=== PATIENT | female | born 1995 | race Caucasian/White ===

== ENCOUNTER 2021-12-31 08:51 | Emergency (ER) | payer MEDICAID, SELFPAY ==
--- NOTE | ~2021-12-31 | CT_ITS ---
EXAMINATION: CT abdomen pelvis w con DATE: 12/31/2021 12:18 INDICATION: Epigastric pain and vomiting TECHNIQUE: Computed tomography (CT) of the abdomen and pelvis was performed with 100 mL Omnipaque-350 intravenous contrast. Automated exposure control and iterative reconstruction technique were employe d. The dose-length product was 614.78 mGy-cm. COMPARISON: 05/31/2012 FINDINGS: Lung bases are clear. Heart size is normal. No pericardial or pleural effusion. Focal hepatic steatos is at the ligamentum teres. Gallbladder, pancreas, spleen and bilateral adrenal glands are normal. No nobstructing 1 mm stone in upper pole calyx of the right kidney and 2 mm stone in a lower pole calyx of the left kidney. No ureteral stones or hydronephrosis. Bladder is normal. Bilateral likely tubal l igation rings. Uterus and adnexa are otherwise unremarkable. Diffuse mild fatty infiltration of the w all of the colon likely related to body habitus. Small bowel and appendix are normal. No free intrape ritoneal gas . Negligible likely physiologic free fluid in the deep pelvis.. No pathologically enlarg ed abdominal or pelvic lymphadenopathy. Mild to moderate lower lumbar spondylosis. IMPRESSION: 1. Bilateral nonobstructing nephrolithiasis. No ureteral stones or hydronephrosis. 2. Reviewed, dictated and finalized at location A. MANAGER IMPRESSION: 1. Bilateral nonobstructing nephrolithiasis. No ureteral stones or hydronephros is. 2.
[2021-12-31 08:56] VITALS: BP 131/87; PULSE 88; RESP 16; TEMP 36.2; O2SAT 99
[2021-12-31 09:19] LABS: Basophils Absolute Auto 0.1 K/mm3 (0.0-0.1); Basophils Percent Auto 0.5 % (0.2-1.2); Eosinophils Absolute Auto 0.1 K/mm3 (0-0.3); Eosinophils Percent Auto 0.8 % (0-4.4); Hematocrit 44.9 % (37.0-47.0); Hemoglobin 15.5 g/dL (12.0-15.0); Immature Granulocyte Absolute 0.07 K/mm3 (0.00-0.031); Immature Granulocyte Percent A 0.5 % (0-0.5); Lymphocytes Percent Auto 29.5 % (18.3-44.2); Mean Corpuscular HGB Conc 34.5 g/dl (32-36); Mean Corpuscular Hemoglobin 30.3 pg (26-34); Mean Corpuscular Volume 87.9 fl (80-100); Mean Platelet Volume 9.2 fl (7.4-10.4); Monocytes Absolute Auto 0.8 K/mm3 (0.1-0.6); Monocytes Percent Auto 5.8 % (2.6-8.5); Neutrophils Absolute Auto 8.3 K/mm3 (1.3-6.7); Neutrophils Percent Auto 62.9 % (45.5-73.1); Platelet Count Result 338 k/mm3 (150-375); Red Blood Count 5.11 M/mm3 (4.2-5.4); Red Cell Distribution Width 12.5 % (11.5-14.5); White Blood Count 13.2 K/mm3 (4.5-10.0)
[2021-12-31 09:32] LABS: Alanine Aminotransferase 35 U/L (6-35); Albumin Level 4.9 g/dL (3.5-5.1); Alkaline Phosphatase 78 U/L (38-126); Anion Gap 13 mmol/L (8-16); Aspartate Amino Transferase 33 U/L (14-36); Bilirubin,Total 0.7 mg/dL (0.2-1.3); Blood Urea Nitrogen 10 mg/dL (7-17); Calcium 9.4 mg/dL (8.4-10.2); Carbon Dioxide 19 mmol/L (22-30); Chloride 107 mmol/L (98-107); Estimated CRCL calculation 99 ml/min; Estimated Glomerular Filt Rate > 60; Glucose 124 mg/dL (65-110); Lipase 91 U/L (23-300); Sodium 139 mmol/L (137-145)
[2021-12-31] MEDS: SODIUM CHLORIDE 0.9% IV 1,000 ML 999 ML IV CONT ×2 (09:50→11:33)
[2021-12-31] MEDS: FAMOTIDINE 20 MG/2 ML VIAL IV PUSH (09:51)
[2021-12-31] MEDS: ONDANSETRON INJ 4 MG/2 ML VIAL IV PUSH (09:51)
--- NOTE | 2021-12-31 10:04 | ED.ABDPAIN ---
HPI - Abdominal Pain General Chief Complaint: Abdominal Pain Stated Complaint: upper abdominal pain with n/v since this AM Time Seen by Provider: 12/31/21 09:07 Source: patient Mode of arrival: ambulatory Limitations: no limitations History of Present Illness HPI narrative: This is a 26-year-old female that presents emergency department for nausea and vomiting. Ongoing since this morning. Associated with epigastric pain. Denies fever, dysuria, or hematuria. Related Data Allergies Allergy/AdvReac Type Severity Reaction Status Date / Time tramadol Allergy Unknown Jittery Verified 12/31/21 08:52 hydrocodone AdvReac Unknown VOMITING Verified 12/31/21 08:52 Review of Systems Review of Systems: CONSTITUTIONAL: Denies fever GASTROINTESTINAL: Reports abdominal pain, nausea, vomiting. Denies diarrhea. GENITOURINARY: Denies dysuria or hematuria. All systems reviewed & are unremarkable except as noted in HPI and below PMFSH Past Medical History Medical History (Updated 12/31/21 @ 15:35 by Judith Garner PA-C) No active medical problems Social History Social History (Updated 12/31/21 @ 10:07 by Judith Garner PA-C) Smoking status: Current every day smoker Exam Narrative: GENERAL: Uncomfortable, well-nourished, actively vomiting HEAD: Normocephalic, atraumatic. EYES: EOMI. CHEST: Clear to auscultation. No respiratory distress. No wheezes rales or rhonchi HEART: Regular rate and rhythm. No murmur heard. Normal peripheral pulses. ABDOMEN: Soft, nondistended, normal active bowel sounds. Mild tenderness to palpation in the epigastrium, without guarding. No CVA tenderness EXTREMITIES: Normal range of motion. No edema. SKIN: Warm, dry, no rash. NEURO: No focal deficits. Alert and oriented x3. PSYCH: Normal mood and affect Course Vital Signs Vital signs: Vital Signs Temperature 97.2 F L 12/31/21 08:56 Pulse Rate 88 12/31/21 08:56 Respiratory Rate 16 12/31/21 08:56 Blood Pressure 131/87 12/31/21 08:56 Pulse Oximetry 99 12/31/21 08:56 Oxygen Delivery Room Air 12/31/21 08:56 Temperature 97.2 F L 12/31/21 08:56 Pulse Rate 85 12/31/21 15:00 Respiratory Rate 16 12/31/21 15:00 Blood Pressure 130/103 H 12/31/21 15:00 Pulse Oximetry 99 12/31/21 08:56 Oxygen Delivery Room Air 12/31/21 08:56 MDM - Abdominal Pain MDM Narrative Medical decision making narrative: Patient presents to the ER for abdominal pain, nausea and vomiting. Ongoing since this morning. She is afebrile and nontoxic appearing. Her vitals are stable. CBC with leukocytosis to 13.2. Looking at her chart it appears that her WBC count is chronically mildly elevated. Also shows some hemoconcentration. Metabolic panel with evidence of mild dehydration as well as urine. Urine appears a contaminated catch. No leuko esterase or nitrates. This will be sent for culture. Patient is not having any urinary symptoms. Urine drug screen positive for cannabinoids. Could be source of her nausea and vomiting. CT scan of the abdomen and pelvis is without acute findings. Patient was hydrated with 2 L of IV fluids and given antiemetics. She was able to tolerate p.o. challenge. She will be given follow-up with gastroenterology. She was given warnings to return to the ER Lab Data Attestation: I reviewed the patient's lab results. Result diagrams: 12/31/21 09:11 12/31/21 09:11 Labs: Lab Results 12/31/21 12/31/21 12/31/21 Range/Units 09:11 09:11 10:51 WBC 13.2 H (4.5-10.0) K/mm3 RBC 5.11 (4.2-5.4) M/mm3 Hgb 15.5 H (12.0-15.0) g/dL Hct 44.9 (37.0-47.0) % MCV 87.9 (80-100) fl MCH 30.3 (26-34) pg MCHC 34.5 (32-36) g/dl RDW 12.5 (11.5-14.5) % Plt Count 338 (150-375) k/mm3 MPV 9.2 (7.4-10.4) fl Immature Gran % (Auto) 0.5 (0-0.5) % Neut % (Auto) 62.9 (45.5-73.1) % Lymph % (Auto) 29.5 (18.3-44.2) % [place] % (Auto) 5.8 (2.6-8.5) % Eos
[2021-12-31 10:59] LABS: Appearance Urine Cloudy (Clear); Bilirubin Urine 1+ (Negative); Blood Urine 2+ (Negative); Glucose Urine UA Negative (Negative); Ketones Urine 2+ mg/dL (Negative); Leukocyte Esterase Ur Negative LEU/UL (Negative); Nitrate Urine Negative (Negative); Protein Urine 2+ mg/dL (Negative); Specific Grav Ur 1.025 (1.001-1.035)
[2021-12-31] MEDS: diphenhydrAMINE HCl INJ 50 MG/ML VIAL 25 MG IV PUSH (11:00)
[2021-12-31] MEDS: METOCLOPRAMIDE HCL INJ 10 MG/2 ML VIAL IV PUSH (11:00)
[2021-12-31 11:11] LABS: Add Urine Microscopic? YES; Color Urine Dark Yellow (Yellow)
[2021-12-31 11:18] LABS: Bacteria Urine Trace /hpf; Mucus Urine Heavy /lpf; RBC Urine 21-50 /hpf (0-2); Squamous Epithelial Cell Urine Moderate /hpf (Few); WBC Urine 21-30 /hpf
[2021-12-31 11:41] LABS: Amphetamine Screen Urine Negative (Negative); Barbiturate Screen Urine Negative (Negative); Benzodiazepines Screen Urine Negative (Negative); Cannabinoid Screen Urine Positive (Negative); Cocaine Screen Urine Negative (Negative); Methadone Screen Urine Negative (Negative); Opiate Screen Urine Negative (Negative); Phencyclidine Screen Urine Negative (Negative)
[2021-12-31] MEDS: diazePAM INJ (*CRX) 10 MG/2 ML SYRINGE 5 MG IV PUSH (11:41)
--- NOTE | 2021-12-31 13:21 | ECG_ITS ---
Measurements Intervals [place] Rate: 60 P: 29 SC: 121 QRS: 9 QRSD: 86 T: 10 QT: 409 QTc: 409 Interpretive Statements SINUS RHYTHM WITH SINUS ARRHYTHMIA LOW QRS VOLTAGE IN PRECORDIAL LEADS BORDERLINE T WAVE ABNORMALITY- ANT/INF LEADS BORDERLINE ECG NO PREVIOUS ECG AVAILABLE FOR COMPARISON Electronically Signed On 12-31-2021 17:02:15 [employer] by Asad Payton D.O.
[2021-12-31] MEDS: HALOPERIDOL LACTATE 5 MG/ML VIAL IV PUSH (14:00)
[2021-12-31 15:00] VITALS: BP 130/103; PULSE 85; RESP 16
[2021-12-31] MEDS: ONDANSETRON HCL ODT 4 MG TABLET PO (15:15)
[2021-12-31] MEDS: DICYCLOMINE HCL INJ 20 MG/2 ML VIAL IM (15:45)
== END 2021-12-31 15:48 | disposition home or self-care (01) ==
PROVIDERS: Physician Assistant; Emergency Provider Emergency Medicine
DX: R11.2 Nausea with vomiting, unspecified (principal); R10.13 Epigastric pain; F17.200 Nicotine dependence, unspecified, uncomplicated
CPT/HCPCS: 36415; 74177; 80053; 80307; 81001; 81025; 83690; 85025; 87086; 87088; 93005; 96361; 96374; 96375; 99284; A9270; J0131; J0500; J1200; J1630; J2405; J2765; J3360; J7030; Q9967